=== PATIENT | female | born 1990 | race Caucasian/White ===

== ENCOUNTER 2025-03-02 03:17 | Emergency (ER) | payer BC, SELFPAY ==
--- NOTE | ~2025-03-02 | XR_ITS ---
EXAMINATION: XR hand RT min 3V DATE: 03/02/2025 10:41 INDICATION: Dog bite to the right hand TECHNIQUE: Posteroanterior, oblique and lateral views of the right hand were obtained. COMPARISON: None. FINDINGS: Alignment is normal. No fracture. Joint spaces are normal. Soft tissues are unremarkable. No soft tis declan gas or radiopaque foreign bodies. IMPRESSION: 1. Negative right hand radiographs. Reviewed, dictated and finalized at location A.
[2025-03-02 03:22] VITALS: BP 150/89; PULSE 106; RESP 16; TEMP 36.4; O2SAT 100
[2025-03-02 10:09] VITALS: BP 129/82; PULSE 103; RESP 18; O2SAT 99
[2025-03-02] MEDS: HYDROcodone/acetaminophen (*CRX) 5-325 MG TABLET 1 TAB PO (10:32)
[2025-03-02] MEDS: TETANUS,DIPHTHERIA,AC PERTUSSIS ADULT (0.5 ML) BOOSTRIX IM (10:43)
--- NOTE | 2025-03-02 11:11 | ED.GENADULT ---
HPI - General Adult General Chief complaint: Animal Bite Stated complaint: dog bite Time Seen by Provider: 03/02/25 10:06 History of Present Illness HPI narrative: Patient is a 34-year-old female who presents ER after being bit by her dog. The dog's vaccines are up-to-date. Her tetanus shot is not up-to-date. She is a nanny. The dog has been having some pain and she is trying to help move the dog when it became startled and bit her right hand/wrist as well as her forearm and right thigh. Patient wash the areas with soap and water. No new numbness or tingling. Has swelling of the right hand. Related Data Allergies Allergy/AdvReac Type Severity Reaction Status Date / Time No Known Allergies Allergy Verified 03/02/25 10:29 Review of Systems Constitutional: Constitutional: Reports no additional constitutional complaints Cardiovascular: Cardiovascular: Reports no additional cardiovascular complaints Respiratory: Respiratory: Reports no additional respiratory complaints Musculoskeletal: Musculoskeletal: Reports no additional musculoskeletal complaints Integumentary/Breasts: Skin/Breast: Reports system reviewed and no additional complaints, except as docu Neurologic: Reports system reviewed and no additional complaints, except as documented [facility] Past Medical History Medical History (Updated 03/02/25 @ 11:16 by Romario Eric MD) Healthy female adult Exam Narrative: GENERAL: Well-appearing, well-nourished, and in no acute distress. HEAD: Normocephalic, atraumatic.. ENT: Mucous membranes moist. HEART: Regular rate and rhythm. Normal peripheral pulses. EXTREMITIES: Right wrist with puncture wound at the anatomic snuffbox 1 cm in width, swelling over the dorsal aspect of the hand over the metacarpals. Normal range of motion of the wrist and fingers. Additional puncture wound proximal forearm laterally distal aspect. Helped wound right proximal thigh. No other bony tenderness. SKIN: Warm, dry, no rash. Puncture wounds as above NEURO: Alert and oriented x3. PSYCH: Normal mood and affect. Course Course Emergency Course: The puncture wound of the wrist, 1 suture was placed to approximate part of the wound but there is still an open area for any potential infection to drain. Patient be placed on oral antibiotics. Tetanus shot updated. Discharge. Vital Signs Vital signs: Vital Signs Temperature 97.6 F 03/02/25 03:22 Pulse Rate 106 H 03/02/25 03:22 Respiratory Rate 16 05/17/25 03:22 Blood Pressure 150/89 H 03/02/25 03:22 Pulse Oximetry 100 03/02/25 03:22 Temperature 97.6 F 03/02/25 03:22 Pulse Rate 103 H 03/02/25 10:09 Respiratory Rate 18 03/02/25 10:09 Blood Pressure 129/82 03/02/25 10:09 Pulse Oximetry 99 03/02/25 10:09 Procedures Laceration Laceration 1: Date: 03/02/25 Time: 11:10 Side (If applicable): right Size (cm): 1 Description: irregular Depth: simple, single layer Local Anesthetic: lidocaine 1% Amount of anesthesia used (mL): 3 Pre-repair: irrigated ====== Skin Level ====== Skin layer closed with: nylon Size (cm): 5-0 Number of sutures: 1 Technique: simple, interrupted ====== Subcutaneous Layer ====== ====== Muscle Layer ====== ====== Tendon Layer ====== Medical Decision Making Vital Signs Vital Signs: Vital Signs Temperature 97.6 F 03/02/25 03:22 Pulse Rate 106 H 03/02/25 03:22 Respiratory Rate 16 03/02/25 03:22 Blood Pressure 150/89 H 03/02/25 03:22 Pulse Oximetry 100 03/02/25 03:22 Temperature 97.6 F 03/02/25 03:22 Pulse Rate 103 H 03/02/25 10:09 Respiratory Rate 18 03/02/25 10:09 Blood Pressure 129/82 03/02/25 10:09 Pulse Oximetry 99 03/02/25 10:09 Discharge Plan Discharge Clinical Impression: Dog bite Patient Disposition: Home Condition: Stable Instructions: Antibiotic Form, Animal Bite (ED), Care For Your Stitches (ED) Additional Instructions: Removed your suture in 14 days. Take Augmentin to help prevent infection. Return ER if your hand is red and hot, there is pus draining from her wounds, you have additional concerns. Patient Language: Thai Prescriptions: New amoxicillin-pot clavulanate 875-125 mg tablet 1 tablet PO Q12H Qty: 14 0RF Follow-up/Referrals: PHYSICIAN NOT ON STAFF,NONSTAFF [Primary Care Provider] - 1 Week Stand Alone Forms: Work/School Release IP
== END 2025-03-02 11:28 | disposition home or self-care (01) ==
PROVIDERS: Emergency Provider Emergency Medicine
DX: S61.551A Open bite of right wrist, initial encounter (principal); Z23 Encounter for immunization; W54.0XXA Bitten by dog, initial encounter
CPT/HCPCS: 12001; 73130; 90471; 90715; 99283; A9270